=== PATIENT | female | born 1990 | race Caucasian/White ===

== ENCOUNTER → 2016-11-17 | Outpatient (CLI) | payer BC ==
[2016-11-26 06:46] LABS: HPV 16 RNA NOT DETECTED (NOT DETECTED); HPV 18 45 RNA NOT DETECTED (NOT DETECTED)
== END | disposition home or self-care (01) ==
LOC: C.PAPS 09:23
PROVIDERS: ATTEND Physician Assistant
DX: R87.619 Unspecified abnormal cytological findings in specimens from cervix uteri (principal)

== ENCOUNTER → 2017-03-08 | Outpatient (CLI) | payer BC | END | disposition home or self-care (01) | LOC: C.PAPS 11:24 | PROVIDERS: ATTEND Physician Assistant | DX: Z01.419 Encounter for gynecological examination (general) (routine) without abnormal findings (principal) ==

== ENCOUNTER → 2017-03-08 | Outpatient (CLI) | payer BC ==
[2017-03-09 21:51] LABS: CHLAMYDIA TRACH RNA*** NOT DETECTED (NOT DETECTED); GC (NEIS GONORRHOEAE)RNA** NOT DETECTED (NOT DETECTED)
== END | disposition home or self-care (01) ==
LOC: C.LABSPEC 11:03
PROVIDERS: ATTEND Physician Assistant
DX: Z01.419 Encounter for gynecological examination (general) (routine) without abnormal findings (principal)

== ENCOUNTER → 2017-03-15 | Outpatient (CLI) | payer BC | END | disposition home or self-care (01) | LOC: C.PATHSPEC 10:24 | PROVIDERS: ATTEND Obstetrics & Gynecology | DX: R87.612 Low grade squamous intraepithelial lesion on cytologic smear of cervix (LGSIL) (principal) ==

== ENCOUNTER → 2018-02-14 | Outpatient (CLI) | payer OTHER | END | disposition home or self-care (01) | LOC: C.PAPS 11:40 | PROVIDERS: ATTEND Obstetrics & Gynecology ==

== ENCOUNTER → 2018-02-14 | Outpatient (CLI) | payer OTHER | END | disposition home or self-care (01) | LOC: C.LABSPEC 10:56 | PROVIDERS: ATTEND Obstetrics & Gynecology | DX: Z11.3 Encounter for screening for infections with a predominantly sexual mode of transmission (principal); Z11.8 Encounter for screening for other infectious and parasitic diseases ==

== ENCOUNTER 2024-10-27 09:56 | Inpatient (IN) ==
[2024-10-27] MEDS ORDERED: LIDOCAINE 1% LOCAL 20 ML VIAL INFIL PRN (10:42)
[2024-10-27] MEDS ORDERED: OXYTOCIN 30 UNITS/NSS 30 UNITS/500 ML BAG IV PRN (10:42)
[2024-10-27 11:23] LABS: Hematocrit (blood only) 37.7 % (37.0-47.0); Hemoglobin 13.3 g/dl (12.0-16.0); Mean Corpuscular Hemoglobin 31.7 pg (25.0-34.0); Mean Corpuscular Hgb Conc 35.3 g/dL (32.0-36.0); Mean Corpuscular Volume 89.8 fL (80.0-100.0); Mean Platelet Volume 11.4 fL (9.4-12.4); Platelet Count 194 K/uL (130-400); RDW Coefficient of Variation 12.8 % (11.5-14.5); RDW Standard Deviation 42.1 fL (36.4-46.3); White Blood Count 11.88 K/ul (4.8-10.8)
[2024-10-27 12:14] LABS: Alanine Aminotransferase 16 U/L (7-52); Aspartate Aminotransferase 23 U/L (13-39)
[2024-10-27 12:31] LABS: Total Protein Urine Random 5.5 mg/dl (0-11.9)
[2024-10-27 12:36] LABS: Creatinine Urine Random 20.2 mg/dl; Protein Creatinine Ratio Urine 0.3 (0-0.2)
[2024-10-27] MEDS ORDERED: NALOXONE HCL 1 MG in SODIUM CHLORIDE 0.9% 1,000 ML IV PRN ×2 (12:54→23:00)
[2024-10-27] MEDS ORDERED: LIDOCAINE 2% MPF LOCAL 5 ML VIAL EPI PRN (12:54)
[2024-10-27] MEDS ORDERED: NALOXONE HCL 0.4 MG/1 ML VIAL/CARP IV PRN ×2 (12:54→23:00)
[2024-10-27] MEDS ORDERED: PROMETHAZINE 6.25 MG/50.25 ML BAG IV PRN (12:54)
[2024-10-27] MEDS ORDERED: NALBUPHINE HCL INJ 10 MG/ML AMP IV PRN ×2 (12:54→23:00)
[2024-10-27] MEDS ORDERED: ePHEDrine sulfate 50 MG/ML AMP IV PRN ×2 (12:54→23:00)
[2024-10-27] MEDS ORDERED: diphenhydrAMINE 50 MG/ML VIAL IV PRN ×2 (12:54→23:00)
[2024-10-27] MEDS ORDERED: ONDANSETRON INJ 2 MG/ML 2 ML VIAL IV PRN (12:54)
[2024-10-27] MEDS ORDERED: ROPIVACAINE 0.5% PF 5 MG/ML 20 ML VIAL EPI PRN (12:54)
[2024-10-27] MEDS ORDERED: SODIUM CHLORIDE 0.9% PF INJ 10 ML VIAL EPI PRN (12:54)
[2024-10-27] MEDS ORDERED: BUPIVACAINE 0.25% PF 30 ML VIAL EPI PRN (12:54)
[2024-10-27] MEDS ORDERED: fentaNYL citrate PF 100 MCG/2 ML VIAL EPI PRN (12:54)
--- NOTE | 2024-10-27 12:55 | Anesthesiology Consultation ---
Date of Service October 27, 2024 Assessment & Plan ASA ASA2 Proposed Anesthesia Anesthesia Type: Labor Epidural Risk / Benefits Reviewed With: PT / POA / Parent / Guardian, Accepts Plan and Informed Consent Obtained History Height/Weight Height: 5 ft Weight: 108.409 kg Allergies Allergy/AdvReac Type Severity Reaction Status Date / Time No Known Allergies Allergy Verified 10/26/24 14:50 Medications Home Medications Medication Instructions Recorded Confirmed Last Taken 21-iron fu-folic acid PO DAILY 03/10/24 10/26/24 10/27/24 [ Complete] aspirin 81 mg chewable tablet 81 mg PO DAILY 10/27/24 10/27/24 10/26/24 Past Medical History Medical History History of chicken pox High risk human papillomavirus infection Atypical squamous cells of undetermined significance (ASC-US) on cervical Pap smear High grade squamous intraepithelial cervical dysplasia Exercise / Class Metabolic Activity II 4-5 Yardwork/Stairs/Walk up hill Past Family History Family History Grandfather (Paternal) Colorectal cancer Father Hypercholesterolemia Grandmother (Paternal) Hypercholesterolemia Grandmother (Maternal) Hypertension Myocardial infarction Mother Hypertension Denies family history of Pancreatic cancer Ovarian cancer Prostate cancer Breast cancer Uterine cancer Past Surgical History Surgical History S/P tooth extraction S/P inguinal hernia repair S/P LEEP (loop electrosurgical excision procedure) Past Anesthesia History No Hx of Anesthesia Complications and No Family Hx of Anesthesia Complications History of PONV No Hx of PONV and No Hx of Motion Sickness Social History Smoking Status: Never smoker Do You Dip or Chew Tobacco: No Hx Alcohol Use: No Hx Substance Use: No Review of Systems denies fever/cough/ colds/ chest pain/ SOB/ OLGA LIDIA denies OLGA LIDIA Physical Exam Vital Signs Last Vital Signs Temp 36.8 C 10/27/24 10:55 Pulse 98 H 10/27/24 13:27 Resp 20 10/27/24 10:55 BP 125/78 10/27/24 13:27 Pulse Ox 98 10/27/24 13:27 ENMT Mouth: no TMJ abnormality and no dentition abnormality Thyromental Distance: > or= 3.5 Finger Breadths Mallampati Class: II Neck neck extension not limited Respiratory normal respiratory effort; no respiratory distress Auscultation: lungs clear to auscultation bilaterally Cardiovascular Rate/Rhythm: regular rate and regular rhythm Neurologic moves all extremities Psychiatric Orientation: alert and oriented x 3 Testing Laboratory Results 10/27/24 11:00
[2024-10-27] MEDS: fentANYL 2 MCG/ML BUPIVacaine 0.125%-NSS 100ML BAG ONE (13:43)
[2024-10-27] MEDS: BUPIVACAINE 0.25% PF 30 ML VIAL EPI STA (13:45)
[2024-10-27] MEDS: LIDOCAINE 2%/EPINEPHRINE 1:200,000 20 ML PF EPI STA (13:45)
[2024-10-27] MEDS: fentaNYL citrate PF 100 MCG/2 ML VIAL EPI STA (13:45)
[2024-10-27] MEDS: LACTATED RINGER'S 1,000 ML IV PRN (13:47)
[2024-10-27] MEDS: SODIUM CHLORIDE 0.9% PF INJ 10 ML VIAL ONE (14:01)
[2024-10-27] MEDS: fentaNYL citrate PF 100 MCG/2 ML VIAL ONE (14:10)
[2024-10-27] MEDS: ePHEDrine sulfate 50 MG/ML AMP ONE (14:10)
[2024-10-27] MEDS: BUPIVACAINE 0.25% PF 30 ML VIAL ONE (14:10)
[2024-10-27] MEDS: LIDOCAINE 2%/EPINEPHRINE 1:200,000 20 ML PF ONE (14:10)
[2024-10-27] MEDS: SODIUM CHLORIDE 0.9% PF INJ 10 ML VIAL EPI STA (15:41)
[2024-10-27] MEDS: TERBUTALINE SULFATE 1 MG/ML VIAL ONE (15:56)
[2024-10-27] MEDS: OXYTOCIN 30 UNITS/NSS 30 UNITS/500 ML BAG IV PRN (19:32)
[2024-10-27] MEDS: fentANYL 2 MCG/ML BUPIVacaine 0.125%-NSS 100ML BAG EPI PRN (20:17)
[2024-10-27] MEDS ORDERED: LACTATED RINGER'S 1,000 ML IV SCH ×2 (22:15→23:15)
--- NOTE | 2024-10-27 22:21 | Labor Progress Brief Note ---
Date of Service October 27, 2024 Subjective after pushing effectively for one hour , minimal descent of vertex now with caput. continued deep variables with pushing but good recovery between contractions. Discussed options with patient and family and feel that baby's intolerance of pushing along with minimal descent of presenting part that it would be prudent to proceed with section at this time. Patient and family are in agreement. Consent signed/ Assessment & Plan Admission and Anticipated Discharge Date Admission Date: October 27, 2024 Results & Data Vital Signs (Past 12 Hours) Vital Signs Temp Pulse Resp BP Pulse Ox 10/27/24 22:13 118 H 100 10/27/24 22:08 114 H 100 10/27/24 22:03 118 H 99 10/27/24 21:58 157 H 99 10/27/24 21:53 98 10/27/24 21:53 142 H 10/27/24 21:53 135 H 88 L 10/27/24 21:48 104 H 99 10/27/24 21:43 107 H 98 10/27/24 21:38 106 H 99 10/27/24 21:36 115 H 89 L 10/27/24 21:32 100 10/27/24 21:32 118 H 10/27/24 21:32 110 H 134/88 10/27/24 21:27 114 H 99 10/27/24 21:22 138 H 100 10/27/24 21:17 140 H 99 10/27/24 21:12 106 H 99 10/27/24 21:07 128 H 99 10/27/24 21:02 134 H 99 10/27/24 21:01 105 H 91 10/27/24 20:57 91 H 98 10/27/24 20:52 93 H 99 10/27/24 20:47 97 H 99 10/27/24 20:45 96 H 124/71 10/27/24 20:42 99.7 F H 101 H 18 100 10/27/24 20:37 117 H 98 10/27/24 20:32 100 H 99 10/27/24 20:31 105 H 126/76 10/27/24 20:27 104 H 100 10/27/24 20:22 97 H 100 10/27/24 20:17 102 H 100 10/27/24 20:15 105 H 124/84 10/27/24 20:12 98 H 100 10/27/24 20:07 106 H 99 10/27/24 20:02 109 H 122/80 100 10/27/24 19:57 109 H 100 10/27/24 19:52 107 H 99 10/27/24 19:47 100 H 100 10/27/24 19:46 100 H 126/60 10/27/24 19:42 108 H 99 10/27/24 19:37 107 H 100 10/27/24 19:32 105 H 99 10/27/24 19:30 112 H 117/70 10/27/24 19:27 106 H 100 10/27/24 19:22 132 H 95 10/27/24 19:17 106 H 98 10/27/24 19:12 101 H 99 10/27/24 19:07 99 H 98 10/27/24 19:02 101 H 100 10/27/24 19:01 98.8 F 18 10/27/24 19:00 98 H 118/76 10/27/24 18:57 104 H 99 10/27/24 18:52 95 H 99 10/27/24 18:47 98 H 100 10/27/24 18:45 97 H 118/76 10/27/24 18:42 101 H 100 10/27/24 18:37 96 H 100 10/27/24 18:32 100 10/27/24 18:32 99 H 10/27/24 18:32 100 H 119/76 10/27/24 18:27 92 H 100 10/27/24 18:22 104 H 100 10/27/24 18:17 106 H 100 10/27/24 18:16 107 H 138/62 10/27/24 18:12 109 H 100 10/27/24 18:07 109 H 100 10/27/24 18:02 95 H 100 10/27/24 18:01 96 H 112/61 10/27/24 18:00 20 10/27/24 18:00 20 10/27/24 17:57 93 H 100 10/27/24 17:52 94 H 100 10/27/24 17:47 91 H 100 10/27/24 17:45 90 121/60 10/27/24 17:42 93 H 100 10/27/24 17:37 91 H 100 10/27/24 17:32 109 H 99 10/27/24 17:31 99 H 171/75 H 10/27/24 17:27 102 H 99 10/27/24 17:22 114 H 100 10/27/24 17:17 109 H 100 10/27/24 17:12 87 99 10/27/24 17:07 94 H 99 10/27/24 17:02 83 99 10/27/24 17:00 98.4 F 87 20 125/76 10/27/24 16:57 86 99 10/27/24 16:52 87 99 10/27/24 16:47 100 10/27/24 16:47 87 10/27/24 16:47 90 138/75 10/27/24 16:42 84 99 10/27/24 16:37 93 H 99 10/27/24 16:32 86 99 10/27/24 16:30 83 136/77 10/27/24 16:27 83 99 10/27/24 16:22 86 100 10/27/24 16:17 91 H 98 10/27/24 16:15 86 130/76 10/27/24 16:12 86 98 10/27/24 16:07 90 99 10/27/24 16:02 82 99 10/27/24 16:00 81 18 143/84 H 10/27/24 15:57 83 99 10/27/24 15:52 85 99 10/27/24 15:47 80 99 10/27/24 15:45 78 139/86 10/27/24 15:42 82 100 10/27/24 15:37 87 98 10/27/24 15:32 84 99 10/27/24 15:30 81 18 133/81 10/27/24 15:27 82 99 10/27/24 15:22 85 99 10/27/24 15:17 87 99 10/27/24 15:16 91 H 130/88 10/27/24 15:12 85 100 10/27/24 15:07 88 99 10/27/24 15:02 89 99 10/27/24 15:00 98.2 F 81 18 126/82 10/27/24 14:57 88 99 10/27/24 14:52 80 99 10/27/24 14:47 93 H 100 10/27/24 14:42 82 100 10/27/24 14:41 79 138/93 10/27/24 14:37 87 18 131/87 100 10/27/24 14:32 100 10/27/24 14:32 91 H 10/27/24 14:32 92 H 18 121/67 10/27/24 14:27 91 H 100 10/27/24 14:26 83 133/89 10/27/24 14:22 87 100 10/27/24 14:21 83 137/90 10/27/24 14:17 100 10/27/24 14:17 79 10/27/24 14:17 89 20 144/89 H 10/27/24 14:12 89 100 10/27/24 14:11 85 138/82 10/27/24 14:10 84 141/89 H 10/27/24 14:07 98 H 100 10/27/24 14:06 97.7 F 96 H 20 107/66 10/27/24 14:02 79 100 10/27/24 14:00 81 102/63 10/27/24 13:58 101 H 20 121/58 L 10/27/24 13:57 97 H 100 10/27/24 13:55 100 H 144/57 H 10/27/24 13:52 96 H 100 10/27/24 13:50 85 132/79 10/27/24 13:48 84 20 121/71 10/27/24 13:47 91 H 100 10/27/24 13:46 82 129/70 10/27/24 13:43 91 H 20 117/71 10/27/24 13:42 100 10/27/24 13:42 89 10/27/24 13:42 93 H 18 124/74 10/27/24 13:40 107 H 121/81 10/27/24 13:37 118 H 18 107/71 100 10/27/24 13:32 104 H 100 10/27/24 13:30 90 18 117/70 10/27/24 13:27 98 H 125/78 98 10/27/24 13:25 82 123/79 10/27/24 13:24 82 121/70 10/27/24 13:22 97 10/27/24 13:22 80 10/27/24 13:22 96 H 131/71 10/27/24 13:17 83 99 10/27/24 13:12 91 H 99 10/27/24 13:08 98.2 F 86 18 142/76 H 10/27/24 13:07 94 H 97 10/27/24 12:01 94 H 132/85 10/27/24 11:00 87 127/87 10/27/24 10:55 98.2 F 20 Coding Level of Care Code 62258 SUB INP/OBS CARE 07/15MIN
[2024-10-27] MEDS: CITRIC ACID/SODIUM CITRATE 15 ML UDC PO STA (22:26)
[2024-10-27] MEDS ORDERED: fentaNYL citrate PF 100 MCG/2 ML VIAL ONE (22:26)
[2024-10-27] MEDS ORDERED: LIDOCAINE 2%/EPINEPHRINE 1:200,000 20 ML PF ONE (22:27)
[2024-10-27] MEDS: ceFAZolin 3000MG 3,000 MG/72.5 ML BAG IV STA (22:30)
[2024-10-27] MEDS: ACETAMINOPHEN 500 MG TAB PO STA (22:31)
[2024-10-27] MEDS ORDERED: OXYTOCIN 10 UNITS/ML VIAL ONE ×3 (22:50)
[2024-10-27] MEDS ORDERED: PHENYLEPHRINE HCL 10 MG/ML VIAL ONE (22:52)
[2024-10-27] MEDS ORDERED: MoRPHine SULFATE PF 1 MG/ML 10 ML AMP/VIAL ONE (22:59)
[2024-10-27] MEDS ORDERED: HYDROmorphone INJ 0.5 MG/0.5 ML SYR IV PRN (23:00)
[2024-10-27] MEDS ORDERED: NO NARCOTICS OR SEDATIVES SCH (23:00)
[2024-10-27] MEDS ORDERED: LACTATED RINGER'S 500 ML IV PRN (23:00)
[2024-10-27] MEDS ORDERED: MoRPHine SULFATE PF 1 MG/ML 10 ML AMP/VIAL EPI ONE (23:00)
[2024-10-27] MEDS ORDERED: DROPERIDOL 5 MG/2 ML VIAL IV PRN (23:00)
[2024-10-27] MEDS ORDERED: DC INTRASPINAL MORPHINE SCH (23:00)
[2024-10-27] MEDS ORDERED: SODIUM CHLORIDE 0.9% 1,000 ML IV SCH (23:00)
[2024-10-27] MEDS ORDERED: diphenhydrAMINE 50 MG/ML VIAL ONE (23:03)
[2024-10-27] MEDS ORDERED: ONDANSETRON INJ 2 MG/ML 2 ML VIAL ONE (23:03)
[2024-10-27 23:28] LABS: Base Excess Cord Venous Blood -8.7 mEq/L (-7.7-1.9); Cord Venous Blood HCO3 19 mmol/L (18.4-26.8); Cord Venous Blood PCO2 48 mmHg (30.4-57.2); Cord Venous Blood PO2 21 mmHg (14.1-43.3); Cord Venous Blood pH 7.21 (7.20-7.44); O2 Saturation Cord Venous Bld < 60.0 % (<68)
[2024-10-27 23:36] LABS: Base Excess Cord Arterial Bld -12.8 mEq/L (-9-1.8); CO2 Cord Arterial Blood 62 mmHg (39.1-73.5); HCO3 Cord Arterial Blood 18 mmol/L (19.7-28.5); PO2 Cord Arterial Blood 23 mmHg (4.1-31.7); pH Cord Arterial Blood 7.07 (7.1-7.38)
--- NOTE | 2024-10-27 23:46 | Post Operative Brief Note ---
Immediate Post Op Note Date of Surgery October 27, 2024 Pre & Post Diagnosis Operation Date: 10/27/24 22:45 Pre-Op Diagnosis: Primay section for Arrest of descent and intolerace of labor Post-Op Diagnosis: same I identified the patient and participated in the time-out.: Yes Procedure Operation Date: 10/27/24 22:45 Actual Procedures p Section in LD for [facility] at 2256(Bilateral) - Kiara Quintero MD, FACOG Surgeon Kiara Quintero MD, FACOG Flat Examiner Lashaun Kapoor MD Quantitative Blood Loss (QBL) 807 Findings Consistent with Post-Op Diagnosis gravid uterus consistent with term with normal tubes and ovaries bilaterally OP presentation Specimens Specimen Description: A. Placenta - exam B. Cord Blood C. Arterial and venous cord blood gases Drains Pathak Catheter (placed prior to OR. to be monitored during procedure by anesthesia) Anesthesia Type Labor Epidural Complications none Disposition Accompanied Patient To Recovery: Yes Disposition: L&D
--- NOTE | 2024-10-27 23:55 | Anesthesia Procedure Note ---
Date of Service October 27, 2024 Anesthesia Post Epidural Note Vital Signs Vital Signs: Temp Pulse Resp BP Pulse Ox 37.6 C H 94 H 18 115/74 100 10/27/24 20:42 10/27/24 23:51 10/27/24 20:42 10/27/24 23:50 10/27/24 23:51 Pain Intensity Bilateral Abdomen: Pain Intensity: 0 Head: Pain Intensity: 3 Notes Mental Status: alert / awake / arousable and participated in evaluation Nausea / Vomiting: adequately controlled Pain: adequately controlled Airway Patency, RR, SpO2: stable & adequate BP & HR: stable & adequate Hydration State: stable & adequate Neuraxial Anesthesia: was administered and sensory block resolved Anesthetic Complications: no major complications apparent and Pt Satisfied with anesthetic care Epidural: Removed without complications and With tip intact
--- NOTE | 2024-10-27 23:55 | Anesthesiology Progress Note ---
Date of Service October 27, 2024 Anesthesia Post Procedure Vital Signs Vital Signs: Temp Pulse Resp BP Pulse Ox 10/27/24 23:51 94 H 100 10/27/24 23:50 98 H 115/74 10/27/24 22:34 117 H 137/88 10/27/24 22:33 121 H 99 10/27/24 22:28 118 H 100 10/27/24 22:23 117 H 99 10/27/24 22:18 115 H 99 10/27/24 22:13 118 H 100 10/27/24 22:08 114 H 100 10/27/24 22:03 118 H 99 10/27/24 21:58 157 H 99 10/27/24 21:53 98 10/27/24 21:53 142 H 10/27/24 21:53 135 H 88 L 10/27/24 21:48 104 H 99 10/27/24 21:43 107 H 98 10/27/24 21:38 106 H 99 10/27/24 21:36 115 H 89 L 10/27/24 21:32 100 10/27/24 21:32 118 H 10/27/24 21:32 110 H 134/88 10/27/24 21:27 114 H 99 10/27/24 21:22 138 H 100 10/27/24 21:17 140 H 99 10/27/24 21:12 106 H 99 10/27/24 21:07 128 H 99 10/27/24 21:02 134 H 99 10/27/24 21:01 105 H 91 10/27/24 20:57 91 H 98 10/27/24 20:52 93 H 99 10/27/24 20:47 97 H 99 10/27/24 20:45 96 H 124/71 10/27/24 20:42 37.6 C H 101 H 18 100 10/27/24 20:37 117 H 98 10/27/24 20:32 100 H 99 10/27/24 20:31 105 H 126/76 10/27/24 20:27 104 H 100 10/27/24 20:22 97 H 100 10/27/24 20:17 102 H 100 10/27/24 20:15 105 H 124/84 10/27/24 20:12 98 H 100 10/27/24 20:07 106 H 99 10/27/24 20:02 109 H 122/80 100 10/27/24 19:57 109 H 100 10/27/24 19:52 107 H 99 10/27/24 19:47 100 H 100 10/27/24 19:46 100 H 126/60 10/27/24 19:42 108 H 99 10/27/24 19:37 107 H 100 10/27/24 19:32 105 H 99 10/27/24 19:30 112 H 117/70 10/27/24 19:27 106 H 100 10/27/24 19:22 132 H 95 10/27/24 19:17 106 H 98 10/27/24 19:12 101 H 99 10/27/24 19:07 99 H 98 10/27/24 19:02 101 H 100 10/27/24 19:01 37.1 C 18 10/27/24 19:00 98 H 118/76 10/27/24 18:57 104 H 99 10/27/24 18:52 95 H 99 10/27/24 18:47 98 H 100 10/27/24 18:45 97 H 118/76 10/27/24 18:42 101 H 100 10/27/24 18:37 96 H 100 10/27/24 18:32 100 10/27/24 18:32 99 H 10/27/24 18:32 100 H 119/76 10/27/24 18:27 92 H 100 10/27/24 18:22 104 H 100 10/27/24 18:17 106 H 100 10/27/24 18:16 107 H 138/62 10/27/24 18:12 109 H 100 10/27/24 18:07 109 H 100 10/27/24 18:02 95 H 100 10/27/24 18:01 96 H 112/61 10/27/24 18:00 20 10/27/24 18:00 20 10/27/24 17:57 93 H 100 10/27/24 17:52 94 H 100 10/27/24 17:47 91 H 100 10/27/24 17:45 90 121/60 10/27/24 17:42 93 H 100 10/27/24 17:37 91 H 100 10/27/24 17:32 109 H 99 10/27/24 17:31 99 H 171/75 H 10/27/24 17:27 102 H 99 10/27/24 17:22 114 H 100 10/27/24 17:17 109 H 100 10/27/24 17:12 87 99 10/27/24 17:07 94 H 99 10/27/24 17:02 83 99 10/27/24 17:00 36.9 C 87 20 125/76 10/27/24 16:57 86 99 10/27/24 16:52 87 99 10/27/24 16:47 100 10/27/24 16:47 87 10/27/24 16:47 90 138/75 10/27/24 16:42 84 99 10/27/24 16:37 93 H 99 10/27/24 16:32 86 99 10/27/24 16:30 83 136/77 10/27/24 16:27 83 99 10/27/24 16:22 86 100 10/27/24 16:17 91 H 98 10/27/24 16:15 86 130/76 10/27/24 16:12 86 98 10/27/24 16:07 90 99 10/27/24 16:02 82 99 10/27/24 16:00 81 18 143/84 H 10/27/24 15:57 83 99 10/27/24 15:52 85 99 10/27/24 15:47 80 99 10/27/24 15:45 78 139/86 10/27/24 15:42 82 100 10/27/24 15:37 87 98 10/27/24 15:32 84 99 10/27/24 15:30 81 18 133/81 10/27/24 15:27 82 99 10/27/24 15:22 85 99 10/27/24 15:17 87 99 10/27/24 15:16 91 H 130/88 10/27/24 15:12 85 100 10/27/24 15:07 88 99 10/27/24 15:02 89 99 10/27/24 15:00 36.8 C 81 18 126/82 10/27/24 14:57 88 99 10/27/24 14:52 80 99 10/27/24 14:47 93 H 100 10/27/24 14:42 82 100 10/27/24 14:41 79 138/93 10/27/24 14:37 87 18 131/87 100 10/27/24 14:32 100 10/27/24 14:32 91 H 10/27/24 14:32 92 H 18 121/67 10/27/24 14:27 91 H 100 10/27/24 14:26 83 133/89 10/27/24 14:22 87 100 10/27/24 14:21 83 137/90 10/27/24 14:17 100 10/27/24 14:17 79 10/27/24 14:17 89 20 144/89 H 10/27/24 14:12 89 100 10/27/24 14:11 85 138/82 10/27/24 14:10 84 141/89 H 10/27/24 14:07 98 H 100 10/27/24 14:06 36.5 C 96 H 20 107/66 10/27/24 14:02 79 100 10/27/24 14:00 81 102/63 10/27/24 13:58 101 H 20 121/58 L 10/27/24 13:57 97 H 100 10/27/24 13:55 100 H 144/57 H 10/27/24 13:52 96 H 100 10/27/24 13:50 85 132/79 10/27/24 13:48 84 20 121/71 10/27/24 13:47 91 H 100 10/27/24 13:46 82 129/70 10/27/24 13:43 91 H 20 117/71 10/27/24 13:42 100 10/27/24 13:42 89 10/27/24 13:42 93 H 18 124/74 10/27/24 13:40 107 H 121/81 10/27/24 13:37 118 H 18 107/71 100 10/27/24 13:32 104 H 100 10/27/24 13:30 90 18 117/70 10/27/24 13:27 98 H 125/78 98 10/27/24 13:25 82 123/79 10/27/24 13:24 82 121/70 10/27/24 13:22 97 10/27/24 13:22 80 10/27/24 13:22 96 H 131/71 10/27/24 13:17 83 99 10/27/24 13:12 91 H 99 10/27/24 13:08 36.8 C 86 18 142/76 H 10/27/24 13:07 94 H 97 10/27/24 12:01 94 H 132/85 10/27/24 11:00 87 127/87 10/27/24 10:55 36.8 C 20 Pain Intensity Bilateral Abdomen: Pain Intensity: 0 Head: Pain Intensity: 3 Transfer of Care Handoff Completed per policy Notes Mental Status: alert / awake / arousable and participated in evaluation Patient Amnestic to Procedure: Yes Nausea / Vomiting: adequately controlled Pain: adequately controlled Airway Patency, RR, SpO2: stable & adequate BP & HR: stable & adequate Hydration State: stable & adequate Anesthetic Complications: no major complications apparent and Pt Satisfied with anesthetic care
[2024-10-27] MEDS: OXYTOCIN 20 UNITS/1002ML LR IV ONE (23:59)
[2024-10-27] MEDS: OXYTOCIN 20 UNITS/LR 1,002 ML IV SCH (23:59)
[2024-10-28] MEDS: AZITHROMYCIN 500 MG/255 ML BAG IV STA (00:12)
[2024-10-28] MEDS: Patient's HEIGHT &/or WEIGHT Needed STA (00:12)
[2024-10-28] MEDS ORDERED: BENZOCAINE 20% SPRY 85 APPLN/85 GM CAN EXT PRN (00:16)
[2024-10-28] MEDS ORDERED: HYDROCORTISONE ACETATE 25 MG SUPP PR PRN (00:16)
[2024-10-28] MEDS ORDERED: MAGNESIUM HYDROXIDE SUSP 30 ML UDC PO PRN (00:16)
[2024-10-28] MEDS ORDERED: SENNA 8.6 MG TAB PO PRN (00:16)
[2024-10-28] MEDS ORDERED: CALCIUM CARBONATE 500 MG CHEWABLE TAB PO PRN (00:16)
[2024-10-28] MEDS: KETOROLAC 30 MG/ML VIAL ONE (00:23)
[2024-10-28] MEDS ORDERED: LACTATED RINGER'S 1,000 ML IV SCH (00:30)
[2024-10-28] MEDS: DIPHTHER/TETAN/PERTUS Vaccine (Tdap, Adol/Adult) 0.5mL IM ONE (00:38)
[2024-10-28] MEDS ORDERED: Nursing to Pharmacy Communication SCH (00:45)
--- NOTE | 2024-10-28 01:01 | Operative Report ---
Post Operative Report Pre & Post Diagnosis Operation Date: 10/27/24 22:45 Pre-Op Diagnosis: Primay section for Arrest of descent and intolerace of labor Post-Op Diagnosis: same I identified the patient and participated in the time-out.: Yes Procedure Operation Date: 10/27/24 22:45 Actual Procedures p Section in for [facility] at 2256(Bilateral) - Kiara Quintero MD, FACOG Surgeon Kiara Quintero MD, FACOG [employer] Administrator Lashaun Kapoor MD Quantitative Blood Loss (QBL) 807 Findings Consistent with Post-Op Diagnosis Gravid uterus consistent with a term in size. Fallopian tubes and ovaries are grossly normal bilaterally. in an occiput posterior presentation with a left shoulder cord. Specimens Placenta to examine Drains Pathak catheter to straight drainage with clear urine at the end of the case Anesthesia Type Labor Epidural Complications none Disposition Accompanied Patient To Recovery: Yes Disposition: L&D Indications Patient had presented to labor and delivery after a elevated blood pressure at the office the day of admission. Blood pressures are then normal throughout her labor and delivery time. heart tones were reassuring and category 1 on admission. She was yannick spontaneously as well. After membranes were ruptured for small amount of clear fluid, she requested epidural analgesia. Several minutes after the epidural was placed, there was bradycardia for approximately 10 minutes. There was recovery to baseline at that time. [id number] variability was normal. There was several other variable decelerations following the episode of bradycardia. Contractions continued spontaneously and she progressed to full dilation. There were occasional variables during the course of her labor but [id number] variability and accelerations still were present. Pitocin was begun to augment her labor and to create a better pattern of contractions for pushing. She was allowed to labor down and after she began pushing, there were deep variables with each contraction but returned to baseline with good [id number] variability in between. After pushing for approximately 1 hour, there was minimal descent of the head and because of the continued deep variables it was felt prudent to proceed with low transverse section. Description of Procedure After the patient's epidural was redosed, she was prepped and draped in the usual sterile fashion. A low transverse skin incision was made with a scalpel and carried to the fascia with the same scalpel. The fascial incision was then extended transversely with Calvo scissors. The edges of the fascia were then grasped with Dari clamps and the underlying rectus muscle was bluntly sharply dissected off of the overlying fascia. The rectus muscles were bluntly divided in the midline and the underlying peritoneum elevated bluntly. The bladder was then taken down off the anterior surface of the uterus and placed behind the bladder blade. The lower uterine segment was entered with a scalpel and extended transversely by stretching the incision in a cephalad and caudad direction. There was thin meconium fluid noted upon entering the uterus. The male infant was delivered from the occiput presentation with the assistance of elevation of the head from the vagina. There was a left shoulder cord noted at the time of delivery as well. The rest of the delivered easily with moderate fundal pressure. After the cord was clamped and cut infant was handed off to Dr. Kurtz and the nursery staff who was there in attendance. Cord gases were obtained and after cord blood was obtained the placenta was expressed intact with a three-vessel cord. Uterine cavity was swept and found to be free of any remaining membranes. The uterus was then closed in 2 layers in a running locking imbricating fashion. There was a slight downward extension of the incision on the right which was repaired along with the rest of the uterine incision. Hemostasis at this point was noted to be excellent. Posterior cul-de-sac suction for small amount of fluid and blood. The uterine incision was examined once more and continue to have excellent hemostasis. The uterus was then gently placed back in the abdominal cavity. The gutters were found to be free of any clot or fluid. The rectus muscle were then brought together in the midline with individual stitches of 0 Monocryl. The fascia was then closed in a running fashion with 0 Vicryl. After irrigating the subcutaneous layer, the skin incision was closed in subcuticular fashion with 4-0 Vicryl. Baby had been taking to the nursery for further attention and evaluation shortly after delivery. Mother was doing well in the immediate postop period and was stable upon arrival back in labor and delivery. I attest to the content of the Intraoperative Record and any orders documented therein. Any exceptions are noted below.
[2024-10-28] MEDS: ACETAMINOPHEN 325 MG TAB PO SCH (06:20)
[2024-10-28] MEDS: KETOROLAC 30 MG/ML VIAL IV SCH (06:21)
--- NOTE | 2024-10-28 06:58 | Obstetrical Progress Note ---
Date of Service October 28, 2024 Assessment & Plan (1) Encounter for assessment: Plan: Patient is PPD 1 s/p pLTCS and doing well - Eating well, voiding well, ambulating well - vitals reviewed and within normal limits - pain well controlled with analgesics - OOB, ambulation, diet progression as tolerated - Blood type: A+, GBS neg, rubella immune - Plan to discharge tomorrow - After discharge, 6 week follow up with [facility] Admission and Anticipated Discharge Date Admission Date: October 27, 2024 Supervising Physician Co-Signing Physician Notes Resident Physician Supervision Note: I interviewed and examined the patient. Discussed with Dr. Barker and agree with findings and plan as documented in the note. Any exceptions or clarifications are listed here:Baby transferred to [facility] for pneumothorax and possible cooling therapy. Baby on room air and did not need cooling therapy. She is anxious to be discharged but will stay til tomorrow to recover from . Documented By: Kiara Quintero MD, FACOG Subjective 34 yo post-operative day 1 s/p primary Ambulation: ambulating normally Voiding: no voiding problems Passing Gas:: Yes Diet Tolerance:: regular diet Lochia:: Small Feeding Type:: breast feeding Current Pain Level:3/10 Resting comfortably this AM in NAD. Denies JHA, CP, SOB, N/V/D, LE pain/swelling. Physical Exam Physical Exam: General: patient resting comfortably, NAD, non-toxic in appearance, answers questions appropriately. Skin: warm, dry, intact HEENT: NC/AT, anicteric sclera, conjunctiva without injection, moist mucus membranes. Heart: +S1/S2, regular, no m/r/g Lungs: equal air entry bilaterally, no rales/rhonchi/wheezes Abd: +BS, soft, NT/ND, uterine fundus firm at umbilicus, caesarean incision C/D /I. Ext: warm, no clubbing/cyanosis or edema Neuro: nonfocal, speech intact, no facial droop, moving all extremities. Results & Data Vital Signs (Past 12 Hours) Vital Signs Temp Pulse Pulse Resp BP BP Pulse Ox 10/28/24 06:34 18 94 10/28/24 05:45 18 96 10/28/24 04:30 18 95 10/28/24 03:15 18 93 10/28/24 03:15 36.5 C 86 18 130/85 93 10/28/24 02:51 98 10/28/24 02:51 104 H 10/28/24 02:51 89 108/65 10/28/24 02:46 93 H 98 10/28/24 02:41 85 106/63 96 10/28/24 02:39 84 93 10/28/24 02:36 83 94 10/28/24 02:34 86 91 10/28/24 02:31 94 10/28/24 02:31 94 H 10/28/24 02:31 87 99/59 L 10/28/24 02:26 89 92 10/28/24 02:21 95 10/28/24 02:21 88 10/28/24 02:21 90 105/62 10/28/24 02:19 91 H 94 10/28/24 02:16 92 H 97 10/28/24 02:11 93 H 109/71 95 10/28/24 02:09 98 H 94 10/28/24 02:06 95 H 97 10/28/24 02:01 92 H 110/60 96 10/28/24 01:56 93 H 96 10/28/24 01:51 37.1 C 16 10/28/24 01:51 96 10/28/24 01:51 92 H 10/28/24 01:51 91 H 119/59 L 10/28/24 01:46 91 H 96 10/28/24 01:41 84 121/66 95 10/28/24 01:36 93 H 97 10/28/24 01:31 92 H 126/69 98 10/28/24 01:26 88 96 10/28/24 01:21 96 10/28/24 01:21 90 10/28/24 01:21 83 110/66 10/28/24 01:16 86 96 10/28/24 01:11 98 10/28/24 01:11 85 10/28/24 01:11 84 115/68 10/28/24 01:06 78 95 10/28/24 01:01 85 126/74 97 10/28/24 00:56 81 97 10/28/24 00:51 98 10/28/24 00:51 87 10/28/24 00:51 88 115/70 10/28/24 00:46 82 98 10/28/24 00:41 21 10/28/24 00:41 95 10/28/24 00:41 98 H 10/28/24 00:41 89 108/65 10/28/24 00:36 88 99 10/28/24 00:31 10/28/24 00:31 98 10/28/24 00:31 96 H 10/28/24 00:31 95 H 134/74 10/28/24 00:28 95 H 91 10/28/24 00:26 87 98 10/28/24 00:21 10/28/24 00:21 86 119/68 100 10/28/24 00:16 85 99 10/28/24 00:11 10/28/24 00:11 99 10/28/24 00:11 89 10/28/24 00:11 86 115/70 10/28/24 00:06 84 99 10/28/24 00:01 18 10/28/24 00:01 99 10/28/24 00:01 96 H 10/28/24 00:01 96 H 117/75 10/27/24 23:56 106 H 81 L 10/27/24 23:51 94 H 100 10/27/24 23:50 22 10/27/24 23:50 37.4 C 22 10/27/24 23:50 98 H 115/74 10/27/24 22:34 117 H 137/88 10/27/24 22:33 121 H 99 10/27/24 22:28 118 H 100 10/27/24 22:23 117 H 99 10/27/24 22:18 115 H 99 10/27/24 22:13 118 H 100 10/27/24 22:08 114 H 100 10/27/24 22:03 118 H 99 10/27/24 21:58 157 H 99 10/27/24 21:53 98 10/27/24 21:53 142 H 10/27/24 21:53 135 H 88 L 10/27/24 21:48 104 H 99 10/27/24 21:43 107 H 98 10/27/24 21:38 106 H 99 10/27/24 21:36 115 H 89 L 10/27/24 21:32 100 10/27/24 21:32 118 H 10/27/24 21:32 110 H 134/88 10/27/24 21:27 114 H 99 10/27/24 21:22 138 H 100 10/27/24 21:17 140 H 99 10/27/24 21:12 106 H 99 10/27/24 21:07 128 H 99 10/27/24 21:02 134 H 99 10/27/24 21:01 105 H 91 10/27/24 20:57 91 H 98 10/27/24 20:52 93 H 99 10/27/24 20:47 97 H 99 10/27/24 20:45 96 H 124/71 10/27/24 20:42 37.6 C H 101 H 18 100 10/27/24 20:37 117 H 98 10/27/24 20:32 100 H 99 10/27/24 20:31 105 H 126/76 10/27/24 20:27 104 H 100 10/27/24 20:22 97 H 100 10/27/24 20:17 102 H 100 10/27/24 20:15 105 H 124/84 10/27/24 20:12 98 H 100 10/27/24 20:07 106 H 99 10/27/24 20:02 109 H 122/80 100 10/27/24 19:57 109 H 100 10/27/24 19:52 107 H 99 10/27/24 19:47 100 H 100 10/27/24 19:46 100 H 126/60 10/27/24 19:42 108 H 99 10/27/24 19:37 107 H 100 10/27/24 19:32 105 H 99 10/27/24 19:30 112 H 117/70 10/27/24 19:27 106 H 100 10/27/24 19:22 132 H 95 10/27/24 19:17 106 H 98 10/27/24 19:12 101 H 99 10/27/24 19:07 99 H 98 10/27/24 19:02 101 H 100 10/27/24 19:01 37.1 C 18 10/27/24 19:00 98 H 118/76 O2 Del Method 10/28/24 06:34 10/28/24 05:45 10/28/24 04:30 10/28/24 03:15 10/28/24 03:15 Room Air 10/28/24 02:10/28/24 02:10/28/24 02:10/28/24 02:46 10/28/24 02:10/28/24 02:39 10/28/24 02:10/28/24 02:10/28/24 02:10/28/24 02:10/28/24 02:10/28/24 02:10/28/24 02:10/28/24 02:10/28/24 02:10/28/24 02:10/28/24 02:10/28/24 02:10/28/24 02:10/28/24 02:10/28/24 02:10/28/24 01:10/28/24 01:10/28/24 01:10/28/24 01:10/28/24 01:10/28/24 01:10/28/24 01:10/28/24 01:10/28/24 01:10/28/24 01:10/28/24 01:10/28/24 01:10/28/24 01:10/28/24 01:10/28/24 01:10/28/24 01:10/28/24 01:10/28/24 01:10/28/24 01:10/28/24 00:10/28/24 00:10/28/24 00:10/28/24 00:10/28/24 00:10/28/24 00:10/28/24 00:10/28/24 00:10/28/24 00:10/28/24 00:10/28/24 00:10/28/24 00:10/28/24 00:10/28/24 00:10/28/24 00:10/28/24 00:10/28/24 00:10/28/24 00:10/28/24 00:10/28/24 00:10/28/24 00:10/28/24 00:10/28/24 00:11 10/28/24 00:06 10/28/24 00:01 10/28/24 00:01 10/28/24 00:01 10/28/24 00:01 10/27/24 23:56 10/27/24 23:51 10/27/24 23:50 10/27/24 23:50 Room Air 10/27/24 23:50 10/27/24 22:34 10/27/24 22:33 10/27/24 22:28 10/27/24 22:23 10/27/24 22:18 10/27/24 22:13 10/27/24 22:08 10/27/24 22:03 10/27/24 21:58 10/27/24 21:53 10/27/24 21:53 10/27/24 21:53 10/27/24 21:48 10/27/24 21:43 10/27/24 21:38 10/27/24 21:36 10/27/24 21:32 10/27/24 21:32 10/27/24 21:32 10/27/24 21:27 10/27/24 21:22 10/27/24 21:17 10/27/24 21:12 10/27/24 21:07 10/27/24 21:02 10/27/24 21:01 10/27/24 20:57 10/27/24 20:52 10/27/24 20:47 10/27/24 20:45 10/27/24 20:42 10/27/24 20:37 10/27/24 20:32 10/27/24 20:31 10/27/24 20:27 10/27/24 20:22 10/27/24 20:17 10/27/24 20:15 10/27/24 20:12 10/27/24 20:07 10/27/24 20:02 10/27/24 19:57 10/27/24 19:52 10/27/24 19:47 10/27/24 19:46 10/27/24 19:42 10/27/24 19:37 10/27/24 19:32 10/27/24 19:30 10/27/24 19:27 10/27/24 19:22 10/27/24 19:17 10/27/24 19:12 10/27/24 19:07 10/27/24 19:02 10/27/24 19:01 10/27/24 19:00 Resident Activity Tracking Resident Involvement: Resident Care Provided Care Provided: OB Delivery (1) Encounter for assessment visit type: exam and care immediately after delivery Qualified Code(s): Z39.0 - Encounter for care and examination of mother immediately after delivery
[2024-10-28] MEDS: SIMETHICONE 80 MG CHEW PO SCH (08:23)
[2024-10-28] MEDS: FERROUS SULFATE 325 MG TAB PO SCH (08:23)
[2024-10-28] MEDS: PRENATAL VITAMIN 1 TAB PO SCH (08:23)
[2024-10-28] MEDS: DOCUSATE SODIUM 100 MG CAP PO SCH (08:23)
[2024-10-28] MEDS: ONDANSETRON INJ 2 MG/ML 2 ML VIAL ONE (10:05)
[2024-10-28] MEDS: ONDANSETRON INJ 2 MG/ML 2 ML VIAL IV STA (10:05)
[2024-10-28] MEDS: NALOXONE HCL 0.08 MG in SYRINGE 1.8 ML IV PRN (13:32)
[2024-10-28] MEDS ORDERED: ONDANSETRON INJ 2 MG/ML 2 ML VIAL IV PRN (17:00)
[2024-10-28] MEDS ORDERED: PROMETHAZINE 12.5 MG/50.5 ML BAG IV PRN (17:00)
[2024-10-28] MEDS ORDERED: HYDROmorphone INJ 0.5 MG/0.5 ML SYR IV PRN (17:00)
[2024-10-28] MEDS ORDERED: diphenhydrAMINE 50 MG/ML VIAL IV PRN (17:00)
[2024-10-28] MEDS ORDERED: diphenhydrAMINE Capsule 25 MG CAP PO PRN (17:00)
[2024-10-29] MEDS: IBUPROFEN 600 MG TAB PO SCH (00:08)
[2024-10-29] MEDS ORDERED: KETOROLAC 30 MG/ML VIAL IV PRN (00:17)
[2024-10-29 07:22] LABS: Basophils # (auto) 0.04 K/uL (0.00-0.20); Basophils % (auto) 0.2 %; Eosinophils # (auto) 0.17 K/uL (0.00-0.50); Eosinophils % (auto) 0.9 %; Hematocrit (blood only) 29.9 % (37.0-47.0); Hemoglobin 10.1 g/dl (12.0-16.0); Immature Granulocytes % (auto) 1.6 %; Lymphocytes % (auto) 16.1 %; Mean Corpuscular Hemoglobin 31.4 pg (25.0-34.0); Mean Corpuscular Hgb Conc 33.8 g/dL (32.0-36.0); Mean Corpuscular Volume 92.9 fL (80.0-100.0); Mean Platelet Volume 11.6 fL (9.4-12.4); Monocytes # (auto) 0.99 K/uL (0.11-0.59); Monocytes % (auto) 5.3 %; Neutrophils # (auto) 14.15 K/uL (1.40-6.50); Neutrophils % (auto) 75.9 %; Platelet Count 160 K/uL (130-400); RDW Coefficient of Variation 13.4 % (11.5-14.5); RDW Standard Deviation 45.1 fL (36.4-46.3); Red Blood Count 3.22 M/uL (4.20-5.40); White Blood Count 18.65 K/ul (4.8-10.8)
--- NOTE | 2024-10-29 07:55 | Obstetrical Progress Note ---
Date of Service October 29, 2024 Assessment & Plan (1) Encounter for assessment: 34 yo POD 2 from [facility], doing well. Baby doing well at [facility] [place] too -Meeting all pp milestones -Rh+/rubella immune/ -f/u 6 weeks for appt, stable for dc home today to see baby visit type: exam and care immediately after delivery Qualified Code(s): Z39.0 - Encounter for care and examination of mother immediately after delivery Subjective Ambulation: ambulating normally Voiding: no voiding problems Passing Gas:: Yes Diet Tolerance:: regular diet Lochia:: Small Feeding Type:: breast feeding Pain well managed with medication Review of Systems Denies fevers, chills, n/v, JHA, CP, SOB Physical Exam Constitutional WD/WN, vitals as above no acute distress Respiratory normal respiratory effort, lungs clear to auscultation Cardiovascular RRR, no murmur, no edema Gastrointestinal (Abdomen) Percussion/Palpation: abdomen soft; abdomen nontender fundus firm at umbilicus and NT, incision c/d/i Musculoskeletal BLE symmetric, nonerythematous, nontender Results & Data Vital Signs (Past 12 Hours) Vital Signs Temp Pulse Pulse Resp BP Pulse Ox O2 Del Method 10/29/24 00:10 97.5 F L 87 16 121/72 100 Room Air 10/28/24 20:20 97.5 F L 74 18 115/82 100 Room Air
[2024-10-29 08:59] VITALS: BP 129/80; RESP 18; TEMP 98.1; O2SAT 98
[2024-10-29] MEDS: oxyCODONE HCL IR 5 MG TAB (IMMEDIATE RELEASE) PO PRN (11:16)
[2024-10-29 12:05] VITALS: PULSE 74
[2024-10-29] MEDS ORDERED: bisacodyL 5 MG TABEC PO SCH (20:00)
[2024-10-30] MEDS ORDERED: bisacodyL 10 MG SUPP PR PRN (00:17)
[2024-10-30] MEDS ORDERED: IBUPROFEN 600 MG TAB PO PRN (00:17)
[2024-10-30] MEDS ORDERED: ACETAMINOPHEN 325 MG TAB PO PRN (06:17)
--- NOTE | 2024-10-30 16:46 | Discharge Summary ---
Date of Service October 30, 2024 Admission Exam (Per Admitting) Constitutional WD/WN, vitals as above no acute distress Respiratory normal respiratory effort, lungs clear to auscultation Cardiovascular RRR, no murmur, no edema Gastrointestinal (Abdomen) Percussion/Palpation: abdomen soft; abdomen nontender Discharge Data Consultations 10/27/24 10:42 Consult Anesthesiology Stat 10/27/24 22:14 Consult Anesthesiology Stat Procedures Performed Operation Date: 10/27/24 22:45 Actual Procedures p Section in LD for [facility] at 2256(Bilateral) - Kiara Quintero MD, [facility] Course (1) Encounter for assessment: 34 yo POD 2 from [facility], doing well. [place] [facility] [place] -Meeting all pp milestones -Rh+/rubella immune/ -f/u 6 weeks for appt, stable for dc home today to see baby Discharge Plan Discharge Items Patient Disposition: Home - Self-Care Reason For Visit: INDUCTION Discharge Diagnosis: s/p section Activity: Per Instructions section Non-emergency contact: [employer] Call non-emergency contact if: your pain is not controlled, your temperature is above 101, your wound has increased redness, your wound has increased drainage and your wound pain has increased Follow-up/Referrals: Lluvia Paredes D.O. [Primary Care Provider] - Diet: Regular Addtl Attending Provider Instructions: ACTIVITY RECOMMENDATIONS: * Gradual return to full activity over the next 2-3 weeks. * No lifting - nothing heavier than baby over the next 2-3 weeks. * Do not engage in vigorous exercise, sexual activity or sports until cleared by your physician. * Do not drive or operate any motorized equipment until cleared by your physician. * You may shower/bathe daily. MEDICATIONS: For discomfort or pain, you may use Acetaminophen (Tylenol), Ibuprofen (Advil), or Naproxen (Aleve) following the package directions. For constipation you may use Colace following the package directions. BREAST CARE: If you are not breast feeding: * Wear a supportive bra 24 hours a day for one to two weeks. * Avoid stimulating your breasts and nipples as much as possible during the first few weeks after delivery. * When taking a shower, have the warm water hit your back, not breasts. * When your breasts feel full, apply ice packs. Usually three to four times a day helps ease the discomfort. * Take a mild pain medication (Tylenol / Motrin) when you are uncomfortable. If breast feeding: * Use breast milk to lubricate nipples. Lansinoh cream may be used for sore nipples. You do not need to remove cream prior to breast feeding. If using a different brand of cream, check the label for directions regarding removal of cream prior to nursing. * Wear a supportive bra. * If having problems with breasts or breast feeding, call a home energy consultant or your health care provider. SPECIAL CARE INSTRUCTIONS: When you are discharged from the hospital, it is important for you to follow the instructions listed below: * During the first week at home, you should be able to care for yourself and your baby. In addition, the usual light household activities are enc ouraged. * Limit your activities to the way you feel. Do not try to clean the house or move furniture. Be sensible. * If you actively engage in sports and have done so up until the time of your delivery, you may resume these activities as soon as you feel able. This may take up to one month or even longer. Use good judgment. * Continue to take your vitamins for at least six weeks after the of your baby. * Your diet need not be limited unless you were on a special diet before your delivery. Breast-feeding mothers need around 2500 calories per day and at least 64-80 ounces of fluid per day (8 to 10 glasses). * You should eat foods from the four major food groups. Crash diets or fad diets are to be avoided. Eating lean meats, fresh fruits and vegetables, low-fat dairy products, high fiber foods and a regular exercise program, will help you get back to your pre- weight without putting your health at risk. * Constipation is sometimes a problem after delivery. Take a mild laxative as needed. If breast feeding, Milk of Magnesia is acceptable to use. You may use a suppository or Fleets enema. * A daily shower or tub bath is suggested. Wash incision daily with warm soapy water and pat dry. It doesn't need to be covered unless drainage is present. * A bloody vaginal discharge will usually continue until around four weeks . A small amount of bleeding may continue for as long as six weeks. Vaginal discharge changes from the bright red bleeding after delivery to pink then brownish and finally yellowish-pink before becoming white and disappearing. * Bleeding may increase with activity. Your first period may come in 4-8 weeks. If you are breast feeding, your period may be delayed even longer. * [place] (sex) can begin whenever both you and your partner feel comfortable and do not have any form of genital infection. It is recommended that you wait at least six weeks for internal and external healing to occur. If you have questions, please talk to your health care practitioner. A condom should be used to prevent infection and . * Foreplay, gentle intercourse and lubrication is very important the first several times to prevent pain. A water-based lubricant such as K-Y jelly or Astroglide may be used. * If you have RH negative blood and your baby is RH positive, you will receive RHOGAM by injection prior to discharge. The nurse will give you a card to keep with you that has the date and place that you received RHOGAM after delivery. * During your care, you had a Rubella screen done to check for the presence of rubella antibodies in your blood. If your test was negative, you will receive a Rubella vaccine prior to discharge. This vaccine may cause a fever, soreness at the injection site and flu-like symptoms. If these symptoms persist, notify your health care practitioner. is not advised for one month after a Rubella vaccine. * Verbalizes understanding of car seat law as reviewed with patient nursing. * Car Seat hand-out given and reviewed with patient by nursing. * Shaken baby information reviewed with patient by nursing. Call you doctor if: * Heavy bleeding (saturating several pads an hour) or passing clots the size of your fist. * A fever >101 degrees F (38.3 degrees C) on two occasions four hours apart and/or chills. * Unusual pain in the pelvic or vaginal areas. * Call the doctor for any increased redness, drainage or swelling around the incision and any pain unrelieved by prescribed pain medication. * "Baby Blues" lasting longer than two weeks. If you have any questions or concerns, call your health care practitioner at . FOLLOW UP VISIT: * Please call the office at to schedule a 6 week examination. It is important you keep this appointment. It is important for you to make arrangements for either yearly or twice yearly check-ups thereafter. Pending Studies at Discharge: No Stand-Alone Forms: My [facility], Smoking Cessation Medications and DC Order Prescriptions: New oxycodone 5 mg Tablet 5 - 10 mg PO Q3H PRN (Reason: pain) Qty: 10 0RF Continued 21-iron fu-folic acid [ Complete] PO DAILY aspirin 81 mg Tablet,Chewable 81 mg PO DAILY Discharge Orders: Discharge Order (Routine); Ordered 10/29/24 Ordered By: Lashaun Schwartz/Other Patient Handouts: Understanding Blues, Understanding Psychosis, Understanding Depression Admission Data Admit Date/Time: 10/27/24 10:38 Attending Provider: Kiara Quintero Admit Provider: Kiara Quintero Primary Care Provider: Lluvia Paredse Other Providers: Pérez Barnhart; Hill Cast Other Interventions: Discharge Summary Assessment (RN) Last Done: 10/29/24 12:03 Supervising Physician Co-Signing Physician Notes Resident Physician Supervision Note: I interviewed and examined the patient. Discussed with Dr. Barker and agree with findings and plan as documented in the note. Any exceptions or clarifications are listed here:[place] [facility] [place]oth[place] and possible cooling therapy. Baby on room air and did not need cooling therapy. She is anxious to be discharged but will stay til tomorrow to recover from . Documented By: Kiara Quintero MD, FACOG Coding Level of Care Code 32986 IN/OBS DISCH 30 MIN/LESS Diagnoses Encounter for care or examination of mother immediately after delivery Z39.0 visit type: exam and care immediately after delivery
--- NOTE | 2024-10-31 07:31 | Coding Query ---
CODING QUERY To promote full compliance with coding requirements relating to patient care, provider participation is requested in all cases of professional fee coder uncertainty. Please assist us with the question(s) below: Coding Question(s): Please document weeks of gestation Physician's Response(s): 40 4/7 weeks Thank you Sydni Angelica Principal Diagnosis: "that condition established after study, to be chiefly responsible for occasioning the admission of the patient to the hospital for care." Co-Existing Principal Diagnosis: "when two or more diagnoses equally meet the criteria for principal diagnosis as determined by the circumstances of admission, diagnostic work up, and/or therapy provided, and the Alphabetic Index, Tabular List, or another coding guideline does not provide sequencing direction, any one of the diagnoses may be sequenced first." "When the physician has documented what appears to be a current diagnosis in the body of the record, but has not included the diagnosis in the final diagnostic statement, the physician should be asked whether the diagnosis should be added." (Source Coding Clinic 2 QTR90. p3-4) MAT
== END 2024-10-29 12:05 | disposition home or self-care (01) | DRG 788 ==
LOC: EDSTATUS 10:37 → 4S1 10:38 → 4E2 10-28 03:25